=== PATIENT | female | born 2000 | race Two or more races ===

== ENCOUNTER 2021-07-15 21:47 | Inpatient (IN) | payer OTHER ==
[~2021-07-15] VITALS: Ht 162.6 cm; Wt 79.8 kg
[~2021-07-15 21:47] MED LIST: PEPCID40 MG PO; ZOFRAN4 MG PO
[2021-07-15] MEDS ORDERED: ALEGRA (22:30)
--- NOTE | 2021-07-15 22:30 | NUR ---
PTE SE RECIBE POR DOLOR DE ESTOMAGO REFIERE PTE.
--- NOTE | 2021-07-16 00:06 | NUR ---
PTE EVALUADA POR DR.D' KNIGHT, SE ORIENTA SOBRE ORDENES DE [place] REFIERE COMPRENDER. SE EXTRAEN MUESTRAS DE LABORATORIO Y SE CANALIZA VENA ABJO MEDIDAS ASEPTICAS. SE ADMINISTRAN MEDICAMENTOS, BAJO MEDIDAS ASEPTICAS. SE NOTIFICA A RADIOLOGIA PARA CT.
[2021-07-17] MEDS ORDERED: TRI-SPRINTEC T1 EACH (08:16)
[2021-07-17] MEDS ORDERED: ALLEGRA ALLERGY60 MG (08:17)
== END 2021-07-18 07:43 | disposition home or self-care (01) | DRG 343 ==
LOC: ER 21:47 → SURH 07-16 04:11
PROVIDERS: ADMIT Surgery; ATTEND Surgery
PROC: 0DTJ4ZZ Resection of Appendix, Percutaneous Endoscopic Approach (ICD-10-PCS; principal; 2021-07-16 07:15)
DX: K35.890 Other acute appendicitis without perforation or gangrene (principal); Z20.822 Contact with and (suspected) exposure to COVID-19

== ENCOUNTER 2023-04-17 17:07 | Inpatient (IN) | payer OTHER ==
[~2023-04-17] VITALS: Ht 162.6 cm; Wt 89.4 kg
[~2023-04-17 17:07] MED LIST changes: +ALEGRA; +ALLEGRA ALLERGY60 MG; +TRI-SPRINTEC T1 EACH
[2023-04-17] MEDS ORDERED: METHOTREXA25 MG/1 M5 IJ (17:33)
[2023-04-17 18:28] LABS: HEMATOCRIT 37.6 % (36.0-45.00); HEMOGLOBIN 12.6 g/dL (12.0-15.00); MEAN CELL VOLUME 86.8 fL (80.00-100.00); MEAN CORPUSCULAR HEMOGLOBIN 29.2 pg (27.00-32.0); MEAN CORPUSCULAR HGB CONC 33.6 g/dl (32.0-36.0); PLATELET COUNT 346 K/uL (150-450); RED BLOOD COUNT 4.33 M/uL (4.00-6.00); RED CELL DISTRIBUTION WIDTH 14.5 % (11.5-14.5)
[2023-04-17 18:43] LABS: INR 0.95; PARTIAL THROMBOPLASTIN TIME 28.2 SECONDS (22.0-34.0)
[2023-04-17 19:03] LABS: ALBUMIN 3.5 gm/dL (3.4-5.0); BILIRUBIN TOTAL 0.51 mg/dL (0.3-1.2); CALCIUM 9.1 mg/dL (8.5-10.1); CREATININE SERUM 0.62 mg/dL (0.55-1.02); GFR 118.26; GLOBULINA 4.2 G/DL (2.4-3.5); POTASSIUM 3.64 mEq/L (3.5-5.1); TOTAL PROTEIN 7.7 gm/dL (6.4-8.2)
[2023-04-18 06:18] LABS: HEMATOCRIT 32.2 % (36.0-45.00); HEMOGLOBIN 10.8 g/dL (12.0-15.00); MEAN CELL VOLUME 86.7 fL (80.00-100.00); MEAN CORPUSCULAR HGB CONC 33.5 g/dl (32.0-36.0); PLATELET COUNT 303 K/uL (150-450); RED BLOOD COUNT 3.72 M/uL (4.00-6.00); RED CELL DISTRIBUTION WIDTH 14.3 % (11.5-14.5)
[2023-04-18] MEDS ORDERED: KETO10TA2 PO (10:45)
[2023-04-18] MEDS ORDERED: TRAM1TAB98 PO (10:45)
== END 2023-04-18 11:39 | disposition home or self-care (01) | DRG 819 ==
LOC: ER 17:07 → O/R 20:50 → SEC-K 20:50 → OB/GYN 20:50 → O/R 22:08 → OB/GYN 04-18 01:50
PROVIDERS: General Practice; ADMIT Obstetrics & Gynecology; ATTEND Obstetrics & Gynecology
PROC: 0UDB8ZZ Extraction of Endometrium, Via Natural or Artificial Opening Endoscopic (ICD-10-PCS; 2023-04-17)
PROC: BU4CZZZ Ultrasonography of Uterus and Ovaries (ICD-10-PCS; 2023-04-17)
PROC: 0UT04ZZ Resection of Right Ovary, Percutaneous Endoscopic Approach (ICD-10-PCS; principal; 2023-04-17 22:00)
DX: O00.201 Right ovarian pregnancy without intrauterine pregnancy (principal); Z20.822 Contact with and (suspected) exposure to COVID-19

== ENCOUNTER 2023-04-25 17:54 | Emergency (ER) | payer OTHER ==
[~2023-04-25] VITALS: Ht 162.6 cm; Wt 87.5 kg
[~2023-04-25 17:54] MED LIST changes: +KETO10TA2 PO; +METHOTREXA25 MG/1 M5 IJ; +TRAM1TAB98 PO
[2023-04-25] MEDS ORDERED: AMOX1TAB5 (18:10)
== END 2023-04-25 19:24 | disposition home or self-care (01) ==
LOC: ER 17:54
DX: T81.31XA Disruption of external operation (surgical) wound, not elsewhere classified, initial encounter (principal); Y92.89 Other specified places as the place of occurrence of the external cause; Z88.8 Allergy status to other drugs, medicaments and biological substances; Z91.013 Allergy to seafood